=== PATIENT | female | born 1990 | race Caucasian/White ===

== ENCOUNTER 2022-11-21 11:55 | Emergency (ER) | payer BC ==
[~2022-11-21] VITALS: Ht 165.1 cm; Wt 68.0 kg
[2022-11-21 12:09] VITALS: BP 124/68; TEMP 98.5; O2SAT 100
[2022-11-21 12:12] VITALS: PULSE 80; RESP 18
== END 2022-11-21 13:46 | disposition home or self-care (01) ==
LOC: ER 12:21
DX: S09.90XA Unspecified injury of head, initial encounter (principal); R42 Dizziness and giddiness; Z91.040 Latex allergy status; X58.XXXA Exposure to other specified factors, initial encounter; Y93.89 Activity, other specified; Y92.89 Other specified places as the place of occurrence of the external cause; Y99.8 Other external cause status
CPT/HCPCS: 99281